=== PATIENT | female | born 1940 | race Caucasian/White ===

== ENCOUNTER 2017-12-22 15:33 | Emergency (ER) | payer OTHER ==
[~2017-12-22] VITALS: Ht 157.5 cm; Wt 94.0 kg
[2017-12-22 15:40] VITALS: TEMP 36.7; Ht 157.5 cm; Wt 94.0 kg
[2017-12-22] MEDS ORDERED: CLOP1TAB15 PO (16:48)
[2017-12-22] MEDS ORDERED: FRS/40 PO (16:48)
[2017-12-22] MEDS ORDERED: LISI-729 PO (16:48)
[2017-12-22] MEDS ORDERED: DULO-24 PO (16:48)
[2017-12-22] MEDS ORDERED: NIFE60TA66 PO (16:48)
[2017-12-22] MEDS ORDERED: GABA-112 PO (16:48)
[2017-12-22] MEDS ORDERED: ROSU20TA PO (16:48)
[2017-12-22] MEDS ORDERED: ISOS120T5 PO (16:48)
[2017-12-22] MEDS ORDERED: ASPI81TA28 PO (16:48)
[2017-12-22 17:02] LABS: BASO % 0.4 %; BASO ABS # 0.04 K/uL (0-0.2); EOS % 2.5 %; EOS ABS # 0.27 K/uL (0-0.5); HEMATOCRIT 36.5 % (37-47); HEMOGLOBIN 12.3 g/dL (12.0-16.0); IG# 0.03 K/uL (0.00-0.02); LYMPH % 27.6 %; LYMPH ABS # 2.97 K/uL (1.2-3.4); MEAN CELL VOLUME 87.5 fL (80-100); MEAN CORPUSCULAR HEMOGLOBIN 29.5 pg (25-34); MEAN CORPUSCULAR HGB CONC 33.7 g/dl (32-36); MEAN PLATELET VOLUME 9.9 fL (7.4-10.4); MONO % 9.6 %; MONO ABS # 1.03 K/uL (0.11-0.59); NEUT % 59.6 %; NEUT ABS # 6.43 K/uL (1.4-6.5); PLATELET COUNT 322 K/uL (130-400); RED CELL DISTRIBUTION WIDTH CV 13.4 % (11.5-14.5); RED CELL DISTRIBUTION WIDTH SD 42.7 fL (36.4-46.3); WHITE BLOOD COUNT 10.77 K/uL (4.8-10.8)
--- NOTE | 2017-12-22 17:20 | DIAGNOSTIC IMAGING REPORT ---
CHEST 2 VIEWS ROUTINE HISTORY: cough, left sided chest pain COMPARISON: None. FINDINGS: No pneumothorax. No pleural effusions. The heart is normal in size. There are poststernotomy changes. The right lung appears clear. There is a hazy left lower lobe airspace opacity. IMPRESSION: Left lower lobe airspace opacity consistent with a pneumonia. Recommend one to 2 month chest x-ray follow-up to ensure resolution. Electronically signed by: Rudi Romo M.D. 12/22/2017 5:19 PM Dictated Date/Time: 12/22/2017 5:18 PM
[2017-12-22] MEDS ORDERED: NTRSL3 UT (17:21)
[2017-12-22 17:22] LABS: ALBUMIN 3.1 gm/dl (3.4-5.0); ALT/SGPT 28 U/L (12-78); AST/SGOT 17 U/L (15-37); BLOOD UREA NITROGEN 25 mg/dl (7-18); CALCIUM 9.9 mg/dl (8.5-10.1); CARBON DIOXIDE 27 mmol/L (21-32); CREATININE 1.66 mg/dl (0.60-1.20); GLUCOSE 212 mg/dl (70-99); POTASSIUM 4.2 mmol/L (3.5-5.1); SODIUM 138 mmol/L (136-145)
[2017-12-22 17:26] LABS: ALKALINE PHOSPHATASE 124 U/L (45-117)
[2017-12-22 17:28] LABS: INFLUENZA B ANTIGEN Neg for Influ B (NEG)
--- NOTE | 2017-12-22 19:35 | DIAGNOSTIC IMAGING REPORT ---
BILATERAL LOWER EXTREMITY VENOUS DOPPLER HISTORY: Leg swelling. COMPARISON STUDY: None. FINDINGS: There is normal compressibility, flow, and augmentation within the bilateral lower extremity deep venous systems. Suboptimal evaluation of the calf vessels due to the patient's body habitus and lower extremity edema. IMPRESSION: No DVT within the visualized right or left lower extremity. Electronically signed by: Rudi Romo M.D. 12/22/2017 7:33 PM Dictated Date/Time: 12/22/2017 7:33 PM
[2017-12-22] MEDS ORDERED: SODIUM CHLORIDE 0.9% 250ML 250 ML IV STA (19:55)
[2017-12-22] MEDS ORDERED: SODIUM CHLORIDE 0.9% 1000ML 1,000 ML IV STA (19:55)
[2017-12-22 23:13] VITALS: BP 182/83; PULSE 73; O2SAT 93
[2017-12-22] MEDS ORDERED: LEVOFLOXACIN 250 MG TAB PO STA (23:33)
[2017-12-22] MEDS ORDERED: LEVO250T47 PO (23:34)
--- NOTE | 2017-12-22 23:37 | EMERGENCY ROOM VISIT NOTE ---
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 The patient reports that she has had a cough for the past 4 weeks. She was seen by her primary care provider in [place] and prescribed steroids. She had a chest x-ray 2 weeks ago. She states the cough has been persistent and has mostly been a dry cough. She has been taking Mucinex without improvement. She states a few days ago, she did develop some nasal congestion and rhinorrhea and has taken loratadine for this which has helped. She states the cough has become productive of a thick whitish phlegm. She reports some difficulty breathing on exertion, but states this is baseline for her. She reports that today, she has developed pain in her left lower ribs. She rates the discomfort a 5/10 and states it is a sharp pain. She reports a cardiac history, but states this is completely different from her cardiac pain. The pain is worse with certain movements and with coughing. She has difficulty taking a deep breath due to the pain. The patient reports a history of hypertension, heart failure, open heart surgery. She denies any history of COPD. She is not a smoker. She did recently travel here from [place] one week ago. Review of Systems A complete 10 point review of systems was reviewed with the patient with pertinent positives and negatives as per history of present illness. All else were negative. Past Medical/Surgical History Medical Problems: (1) Heart disease (2) Hypertension Surgical Problems: (1) History of section (2) History of cholecystectomy (3) History of heart surgery Social History Smoking Status: Never Smoker Alcohol Use: none Drug Use: none Housing Status: lives with family Current/Historical Medications Scheduled Aspirin (Aspirin Ec), 81 MG PO DAILY Clopidogrel (Plavix), 75 MG PO DAILY Duloxetine HCl (Cymbalta), 20 MG PO DAILY Furosemide (Lasix), 40 MG PO DAILY Gabapentin (Neurontin), 100 MG PO DAILY Isosorbide Mononitrate (Imdur Ext Rel), 120 MG PO QAM Levofloxacin (Levaquin), 250 MG PO DAILY Lisinopril (Zestril), 5 MG PO BID Nifedipine (Nifedipine Er), 60 MG PO BID Rosuvastatin Calcium (Crestor), 20 MG PO DAILY Scheduled PRN Nitroglycerin (Nitrostat), 1 TAB UT UD PRN for Chest Pain Physical Exam Vital Signs Date Time Temp Pulse Resp B/P (MAP) Pulse Ox O2 Delivery O2 Flow Rate FiO2 12/22/17 23:13 73 22 182/83 93 Room Air 12/22/17 21:30 62 16 164/72 95 Room Air 12/22/17 19:35 64 16 170/84 95 Room Air NIBP 12/22/17 17:46 65 16 191/76 96 Room Air 12/22/17 15:52 98 Room Air 12/22/17 15:40 36.7 59 20 200/68 95 Room Air Physical Exam VITALS: Vitals are noted on the nurse's note and reviewed by myself. Hypertensive. GENERAL: This is a 77-year-old female, in no acute distress, nondiaphoretic, well-developed well-nourished. SKIN: The skin was without rashes. EARS: External auditory canals clear, tympanic membranes pearly cornell without erythema or effusion bilaterally. EYES: Pupils equal round and reactive to light and accommodation. MOUTH: Mucous membranes moist. Tonsils are not enlarged. Pharynx without erythema or exudate. NECK: Supple without nuchal rigidity. No lymphadenopathy. HEART: Regular rate and rhythm without murmurs gallops or rubs. LUNGS: Coarse breath sounds throughout. No retractions or accessory muscle use. NEURO: Patient was alert and oriented to person place and time. Medical Decision & Procedures ER Provider Diagnostic Interpretation: CHEST 2 VIEWS ROUTINE FINDINGS: No pneumothorax. No pleural effusions. The heart is normal in size. There are poststernotomy changes. The right lung appears clear. There is a hazy left lower lobe airspace opacity. IMPRESSION: Left lower lobe airspace opacity consistent with a pneumonia. Recommend one to 2 month chest x-ray follow-up to ensure resolution. BILATERAL LOWER EXTREMITY VENOUS DOPPLER HISTORY: Leg swelling. COMPARISON STUDY: None. FINDINGS: There is normal compressibility, flow, and augmentation within the bilateral lower extremity deep venous systems. Suboptimal evaluation of the calf vessels due to the patient's body habitus and lower extremity edema. IMPRESSION: No DVT within the visualized right or left lower extremity. NM VQ: Small matched defects. Low probability for PE. Clumping of inhaled radiotracer suggesting airways disease. Radiologist: Wing Mandujano M.D. Laboratory Results 12/22/17 16:40 Red Blood Count 4.17, Mean Corpuscular Volume 87.5, Mean Corpuscular Hemoglobin 29.5, Mean Corpuscular Hemoglobin Concent 33.7, Mean Platelet Volume 9.9, Neutrophils (%) (Auto) 59.6, Lymphocytes (%) (Auto) 27.6, Monocytes (%) (Auto) 9.6, Eosinophils (%) (Auto) 2.5, Basophils (%) (Auto) 0.4, Neutrophils # (Auto) 6.43, Lymphocytes # (Auto) 2.97, Monocytes # (Auto) 1.03, Eosinophils # (Auto) 0.27, Basophils # (Auto) 0.04 12/22/17 16:40 Test 12/22/17 16:40 White Blood Count 10.77 K/uL (4.8-10.8) Red Blood Count 4.17 M/uL (4.2-5.4) Hemoglobin 12.3 g/dL (12.0-16.0) Hematocrit 36.5 % (37-47) Mean Corpuscular Volume 87.5 fL (80-100) Mean Corpuscular Hemoglobin 29.5 pg (25-34) Mean Corpuscular Hemoglobin Concent 33.7 g/dl (32-36) Platelet Count 322 K/uL (130-400) Mean Platelet Volume 9.9 fL (7.4-10.4) Neutrophils (%) (Auto) 59.6 % Lymphocytes (%) (Auto) 27.6 % Monocytes (%) (Auto) 9.6 % Eosinophils (%) (Auto) 2.5 % Basophils (%) (Auto) 0.4 % Neutrophils # (Auto) 6.43 K/uL (1.4-6.5) Lymphocytes # (Auto) 2.97 K/uL (1.2-3.4) Monocytes # (Auto) 1.03 K/uL (0.11-0.59) Eosinophils # (Auto) 0.27 K/uL (0-0.5) Basophils # (Auto) 0.04 K/uL (0-0.2) RDW Standard Deviation 42.7 fL (36.4-46.3) RDW Coefficient of Variation 13.4 % (11.5-14.5) Immature Granulocyte % (Auto) 0.3 % Immature Granulocyte # (Auto) 0.03 K/uL (0.00-0.02) D-Dimer 1300 ug/L FEU (0-500) Anion Gap 7.0 mmol/L (3-11) Est Creatinine Clear Calc Drug Dose 31.3 ml/min Estimated GFR () 34.6 Estimated GFR (Non- 29.8 BUN/Creatinine Ratio 15.0 (10-20) Calcium Level 9.9 mg/dl (8.5-10.1) Total Bilirubin 0.3 mg/dl (0.2-1) Aspartate Amino Transf (AST/SGOT) 17 U/L (15-37) Alanine Aminotransferase (ALT/SGPT) 28 U/L (12-78) Alkaline Phosphatase 124 U/L (45-117) Troponin I < 0.015 ng/ml (0-0.045) Total Protein 8.0 gm/dl (6.4-8.2) Albumin 3.1 gm/dl (3.4-5.0) Globulin 4.9 gm/dl (2.5-4.0) Albumin/Globulin Ratio 0.6 (0.9-2) Influenza Type A Antigen Neg for Influ A (NEG) Influenza Type B Antigen Neg for Influ B (NEG) Medications Administered Medications (Trade) Dose Ordered Sig/Ralph Route Start Time Stop Time Status Last Admin Dose Admin Levofloxacin (Levaquin Tab) 500 mg NOW STAT PO 12/22/17 23:33 12/22/17 23:34 DC 12/22/17 23:47 500 MG Medical Decision Differential diagnosis includes pneumonia, PE, cardiac disease, herpes zoster, musculoskeletal pain, pleurisy,among others. The patient is a 77-year-old female who presents today complaining of ongoing cough and left rib pain. Labs revealed no leukocytosis or anemia. Creatinine was elevated at 1.66 which patient states is her baseline. D-dimer was found to be elevated at 1300. Chest x-ray showed evidence of pulmonary infiltrate in the left lower lobe. Due to patient's elevated d-dimer and recent travel, I did feel further workup to rule out PE was indicated. Patient had elevated creatinine and reports that when she has received contrast dye for heart catheterization in the past, her kidneys have stopped producing urine. Ultrasound bilateral lower extremities was performed which showed no evidence of DVT. Fortunately a VQ scan was able to be performed and showed low probability for PE. Patient had stable vital signs throughout her stay. She was hypertensive but states this is baseline for her and that her systolic blood pressure is rarely under 200. She has an appointment set up with a new primary care provider in the morning. She will be placed on Levaquin and will follow up with her PCP for further evaluation. She was advised to return here immediately with worsening shortness of breath, pain or other new/concerning symptoms. The patient was independently evaluated by Dr. Mckeon, ED attending physician, who agreed with my assessment and treatment plan. Based on the patient's presentation and work up, I feel the patient is stable for outpatient treatment. The patient was educated to return to the emergency department for any worsening of their current condition or new/concerning symptoms. She will follow up with her PCP. Medication Reconcilliation Current Medication List: was personally reviewed by me Blood Pressure Screening Patient's blood pressure: Elevated blood pressure Blood pressure disposition: Referred to PCP Impression Primary Impression: Pneumonia Departure Information Dispostion Home / Self-Care Condition GOOD Prescriptions Levofloxacin (LEVAQUIN) 250 Mg Tab 250 MG PO DAILY for 6 Days, #6 TAB Prov: Celsa Rojas ., KEY 12/22/17 Referrals Constantino Walton M.D. (PCP) Patient Instructions [facility] Additional Instructions Levaquin as prescribed, each evening for 7 days. Take the next dose tomorrow evening. Tylenol as needed for any pain. Follow up with your primary care provider as scheduled. Return to the emergency department with any worsening pain, shortness of breath , or any other new/concerning symptoms. Problem Qualifiers Primary Impression: Pneumonia Pneumonia type: due to unspecified organism Laterality: left Lung location : lower lobe of lung Qualified Codes: J18.1 - Lobar pneumonia, unspecified organism
--- NOTE | 2017-12-22 23:47 | EMERGENCY ROOM VISIT NOTE ---
ED Visit Note First contact with patient: 15:46 The patient was seen and examined with Celsa Rojas PA-C. I agree with the history, physical and findings. Please see the note for disposition and details.
--- NOTE | 2017-12-23 06:42 | DIAGNOSTIC IMAGING REPORT ---
LUNG IMAGING VQ CLINICAL HISTORY: Chest pain. Dyspnea. COMPARISON: None TECHNIQUE: For the ventilation portion of this exam, 33 mCi of DTPA was inhaled at 10:20 PM. Immediately following inhalation, imaging of the chest was carried out in the anterior, posterior, left lateral, right lateral, LPO, RPO, CROATIAN and TREVIZO projections. For the perfusion portion of exam, 6.6 mCi of technetium 99m MAA was injected IV at 10:40 PM. Immediately following injection, imaging of the chest was carried out in the same projections. FINDINGS: Perfusion is slightly heterogeneous throughout. There is moderate central air trapping. A significant ventilation/perfusion defect is not appreciated. IMPRESSION: Low probability pulmonary embolus. The above report was generated using voice recognition software. It may contain grammatical, syntax or spelling errors. Electronically signed by: Ryder Porras M.D. 12/23/2017 6:40 AM Dictated Date/Time: 12/23/2017 6:34 AM
== END 2017-12-22 23:53 | disposition home or self-care (01) ==
LOC: C.EDB 15:34
DX: J18.1 Lobar pneumonia, unspecified organism (principal); I11.9 Hypertensive heart disease without heart failure; Z79.82 Long term (current) use of aspirin; Z79.02 Long term (current) use of antithrombotics/antiplatelets; Z79.899 Other long term (current) drug therapy

== ENCOUNTER → 2017-12-31 | Outpatient (CLI) | payer OTHER ==
[~2017-12-31] MED LIST: ASPI81TA28 PO; CLOP1TAB15 PO; DULO-24 PO; FRS/40 PO; GABA-112 PO; ISOS120T5 PO; LISI-729 PO; NIFE60TA66 PO; NTRSL3 UT; ROSU20TA PO
== END | disposition home or self-care (01) ==
LOC: C.LABMFLN 17:50
PROVIDERS: ATTEND Family Medicine
DX: I10 Essential (primary) hypertension (principal); J18.9 Pneumonia, unspecified organism